=== PATIENT | male | born 1990 | race Caucasian/White ===

== ENCOUNTER 2020-01-26 22:34 | Observation (INO) | payer BC ==
[2020-01-26] MEDS ORDERED: Sodium Chloride 0.9% 1,000 ML IV STA (22:45)
[2020-01-26] MEDS ORDERED: Ondansetron 4 MG/2 ML SDV IVPUSH ONE (22:45)
[2020-01-26] MEDS ORDERED: Sodium Chloride 0.9% 10 ML Syringe FLUSH PRN (22:45)
[2020-01-26] MEDS ORDERED: HYDROmorphone 1 MG/ML Syringe IVPUSH ONE (22:46)
--- NOTE | 2020-01-26 22:57 | EDM.PDOC ---
ED HPI GENERAL MEDICAL PROBLEM - General Chief Complaint: Abdominal Pain Stated Complaint: RT SIDE FLANK PAIN Time Seen by Provider: 01/26/20 22:45 Source of Information: Reports: Patient History Limitations: Reports: No Limitations - History of Present Illness INITIAL COMMENTS - FREE TEXT/NARRATIVE: The patient presents with RLQ abdominal pain, nausea, vomiting and back pain. This all started tonight at 7:30pm when he was cooking dinner. He has no history of kidney stones. He has no fever, chills, cough, congestion, runny nose, chest pain or shortness of breath. He has no dysuria or hematuria. He has no diarrhea. He still has his gallbladder and appendix. Onset: Sudden Duration: Hour(s): Location: Reports: Abdomen Quality: Reports: Sharp Severity: Severe Improves with: Reports: None Worsens with: Reports: None Associated Symptoms: Reports: Nausea/Vomiting. Denies: Chest Pain, Cough, Fever /Chills, Headaches, Shortness of Breath Right Upper Abdomen Pain Score (Numeric/FACES): 7 - Related Data Allergies Allergy/AdvReac Type Severity Reaction Status Date / Time No Known Allergies Allergy Verified 01/26/20 22:45 Social & Family History - Tobacco Use Years of Tobacco use: 4 - Caffeine Use Caffeine Use: Reports: None - Recreational Drug Use Recreational Drug Use: No ED ROS GENERAL - Review of Systems Review Of Systems: See Below Constitutional: Reports: No Symptoms HEENT: Reports: No Symptoms Respiratory: Reports: No Symptoms Cardiovascular: Reports: No Symptoms Endocrine: Reports: No Symptoms GI/Abdominal: Reports: Abdominal Pain, Nausea, Vomiting. Denies: Diarrhea : Reports: No Symptoms Musculoskeletal: Reports: Back Pain Skin: Reports: No Symptoms ED EXAM, GI/ABD - Physical Exam Exam: See Below Exam Limited By: No Limitations General Appearance: Alert, No Apparent Distress Ears: Normal External Exam Nose: Normal Inspection Head: Atraumatic, Normocephalic Neck: Normal Inspection Respiratory/Chest: No Respiratory Distress, Lungs Clear, Normal Breath Sounds Cardiovascular: Regular Rate, Rhythm, No Edema, No Murmur GI/Abdominal Exam: Soft, No Organomegaly, No Mass, Tender (Moderate tenderness to the RLQ) Course - Vital Signs Last Recorded V/S: Last Vital Signs Temp 98.1 F 01/26/20 22:42 Pulse 71 01/26/20 22:42 Resp 20 01/26/20 22:42 BP 160/91 H 01/26/20 22:42 Pulse Ox 99 01/26/20 22:42 - Orders/Labs/Meds Orders: Active Orders 24 hr Category Date Time Status Peripheral IV Care [RC] . DIRECTED Care 01/26/20 22:45 Active Abdomen Pelvis w Cont [CT] Stat Exams 01/26/20 22:45 Taken UA W/MICROSCOPIC [URIN] Stat Lab 01/26/20 22:45 Ordered Sodium Chloride 0.9% [Saline Flush] Med 01/26/20 22:45 Active 10 ml FLUSH ASDIRECTED PRN ED Antiemetic Medication Reflex [OM.PC] Stat Oth 01/26/20 22:45 Ordered Peripheral IV Insertion Adult [OM.PC] Stat Oth 01/26/20 22:45 Ordered Medication Orders Sodium Chloride (Saline Flush) 10 ml FLUSH ASDIRECTED PRN PRN Reason: Keep Vein Open Last Admin: 01/26/20 22:57 Dose: 10 ml Labs: Laboratory Tests 01/26/20 01/26/20 Range/Units 22:52 22:52 WBC 16.94 H (4.23-9.07) K/mm3 RBC 5.14 (4.63-6.08) M/mm3 Hgb 15.1 (13.7-17.5) gm/dl Hct 43.9 (40.1-51.0) % MCV 85.4 (79.0-92.2) fl MCH 29.4 (25.7-32.2) pg MCHC 34.4 (32.2-35.5) g/dl RDW Std Deviation 39.6 (35.1-43.9) fL Plt Count 227 (163-337) K/mm3 MPV 9.0 L (9.4-12.3) fl Neut % (Auto) 82.9 H (34.0-67.9) % Lymph % (Auto) 10.4 L (21.8-53.1) % [place] % (Auto) 6.3 (5.3-12.2) % Eos % (Auto) 0.1 L (0.8-7.0) Baso % (Auto) 0.1 (0.1-1.2) % Neut # (Auto) 14.04 H (1.78-5.38) K/mm3 Lymph # (Auto) 1.76 (1.32-3.57) K/mm3 [place] # (Auto) 1.07 H (0.30-0.82) K/mm3 Eos # (Auto) 0.02 L (0.04-0.54) K/mm3 Baso # (Auto) 0.01 (0.01-0.08) K/mm3 Manual Slide Review Sodium 141 (136-145) mEq/L Potassium 3.5 (3.5-5.1) mEq/L Chloride 103 (98-107) mEq/L Carbon Dioxide 29 (21-32) mEq/L Anion Gap 12.5 (5-15) BUN 11 (7-18) mg/dL Creatinine 1.1 (0.7-1.3) mg/dL Est Cr Clr Drug Dosing 111.98 mL/min Estimated GFR (MDRD) > 60 (>60) mL/min BUN/Creatinine Ratio 10.0 L (14-18) Glucose 119 H (74-106) mg/dL Calcium 9.0 (8.5-10.1) mg/dL Total Bilirubin 0.8 (0.2-1.0) mg/dL AST 22 (15-37) U/L ALT 38 (16-63) U/L Alkaline Phosphatase 77 (46-116) U/L Total Protein 7.4 (6.4-8.2) g/dl Albumin 4.2 (3.4-5.0) g/dl Globulin 3.2 gm/dL Albumin/Globulin Ratio 1.3 (1-2) Lipase 72 L (73-393) U/L Meds: Medications Generic Name Dose Route Start Last Admin Trade Name Freq PRN Reason Stop Dose Admin Sodium Chloride 10 ml 01/26/20 22:45 01/26/20 22:57 Saline Flush FLUSH 10 ml ASDIRECTED PRN Administration Keep Vein Open Discontinued Medications Generic Name Dose Route Start Last Admin Trade Name Freq PRN Reason Stop Dose Admin Hydromorphone HCl 1 mg 01/26/20 22:46 01/26/20 22:58 Dilaudid IVPUSH 01/26/20 22:47 1 mg ONETIME ONE Administration Hydromorphone HCl 0.5 mg 01/27/20 00:32 01/27/20 00:37 Dilaudid IVPUSH 01/27/20 00:33 0.5 mg ONETIME ONE Administration Sodium Chloride 1,000 mls @ 1,000 mls/hr 01/26/20 22:45 01/26/20 22:57 Normal Saline IV 01/26/20 23:44 1,000 mls/hr .BOLUS STA Administration Ondansetron HCl 4 mg 01/26/20 22:45 01/26/20 22:57 Zofran IVPUSH 01/26/20 22:46 4 mg ONETIME ONE Administration - Re-Assessments/Exams Free Text/Narrative Re-Assessment/Exam: 01/26/20 22:56 I ordered an IV NS 1L bolus, zofran 4mg IV, dilaudid 1mg IV, labs, UA and a CT of his abdomen and pelvis with IV and oral contrast. His history suggest more kidney stones but his exam makes me concerned about appendix. 01/27/20 01:04 His WBC is elevated 16.94. His CMP looks good. His lipase was low. His CT shows findings consistent with acute appendicitis without perforation or abscess. 01/27/20 01:[address] Patrick and he wanted a dose of invanz and he will see the patient in a few hours to take out his appendix. Departure - Departure Time of Disposition: 13:15 Disposition: Refer to Observation Condition: Fair Clinical Impression: Appendicitis Qualifiers: Appendicitis type: acute appendicitis Acute appendicitis type: with localized peritonitis Appendicitis gangrene presence: without gangrene Appendicitis perforation presence: without perforation Appendicitis abscess presence: without abscess Qualified Code(s): K35.30 - Acute appendicitis with localized peritonitis, without perforation or gangrene - Discharge Information Referrals: PCP,None [Primary Care Provider] - Forms: ED Department Discharge Sepsis Event Note - Evaluation Sepsis Screening Result: No Definite Risk - Focused Exam Vital Signs: Vital Signs Temp Pulse Resp BP Pulse Ox 01/26/20 22:42 98.1 F 71 20 160/91 H 99 Date Exam was Performed: 01/27/20 Time Exam was Performed: 01:04 - My Orders Last 24 Hours: My Active Orders 01/26/20 22:45 Peripheral IV Care [RC] . DIRECTED Abdomen Pelvis w Cont [CT] Stat UA W/MICROSCOPIC [URIN] Stat Sodium Chloride 0.9% [Saline Flush] 10 ml FLUSH ASDIRECTED PRN ED Antiemetic Medication Reflex [OM.PC] Stat Peripheral IV Insertion Adult [OM.PC] Stat - Assessment/Plan Last 24 Hours: My Active Orders 01/26/20 22:45 Peripheral IV Care [RC] . DIRECTED Abdomen Pelvis w Cont [CT] Stat UA W/MICROSCOPIC [URIN] Stat Sodium Chloride 0.9% [Saline Flush] 10 ml FLUSH ASDIRECTED PRN ED Antiemetic Medication Reflex [OM.PC] Stat Peripheral IV Insertion Adult [OM.PC] Stat
[2020-01-27] MEDS ORDERED: HYDROmorphone 0.5 MG/0.5 ML Syringe IVPUSH ONE (00:32)
[2020-01-27] MEDS ORDERED: Ertapenem 1 GM Vial ONE (01:14)
[2020-01-27] MEDS ORDERED: Sodium Chloride 0.9% 100 ML ONE (01:15)
[2020-01-27] MEDS ORDERED: Ertapenem 1 GM in Sodium Chloride 0.9% 100 ML IV ONE (01:18)
[2020-01-27] MEDS ORDERED: Ondansetron 4 MG/2 ML SDV IVPUSH PRN (01:44)
[2020-01-27] MEDS ORDERED: Lactated Ringers 1,000 ML IV SCH (02:00)
[2020-01-27] MEDS: HYDROmorphone 0.5 MG/0.5 ML Syringe IVPUSH PRN ×4 (05:55→14:13)
--- NOTE | 2020-01-27 07:04 | PCM.PREANE ---
Preanesthetic Assessment - Anesthesia/Transfusion/Family Hx Anesthesia History: Prior Anesthesia Without Reaction Family History of Anesthesia Reaction: No Transfusion History: Prior Transfusion Reaction - Review of Systems General: No Symptoms Pulmonary: No Symptoms Cardiovascular: No Symptoms Gastrointestinal: No Symptoms Neurological: No Symptoms Other: Reports: None - Physical Assessment NPO Status Date: 01/26/20 NPO Status Time: 21:00 Vital Signs: Last Vital Signs Temp 99.1 F 01/27/20 05:45 Pulse 56 L 01/27/20 05:45 Resp 14 01/27/20 05:45 BP 126/63 01/27/20 05:45 Pulse Ox 96 01/27/20 05:45 Height: 1.85 m Weight: 110.314 kg ASA Class: 1 Mental Status: Alert & Oriented x3 Airway Class: Mallampati = 2 Dentition: Reports: Normal Dentition, [place](s) Thyro-Mental Finger Breadths: 3 Mouth Opening Finger Breadths: 3 ROM/Head Extension: Full Lungs: Clear to Auscultation, Normal Respiratory Effort Cardiovascular: Regular Rate, Regular Rhythm - Lab Values: Laboratory Last Values WBC 16.94 K/mm3 (4.23-9.07) H 01/26/20 22:52 RBC 5.14 M/mm3 (4.63-6.08) 01/26/20 22:52 Hgb 15.1 gm/dl (13.7-17.5) 01/26/20 22:52 Hct 43.9 % (40.1-51.0) 01/26/20 22:52 MCV 85.4 fl (79.0-92.2) 01/26/20 22:52 MCH 29.4 pg (25.7-32.2) 01/26/20 22:52 MCHC 34.4 g/dl (32.2-35.5) 01/26/20 22:52 RDW Std Deviation 39.6 fL (35.1-43.9) 01/26/20 22:52 Plt Count 227 K/mm3 (163-337) 01/26/20 22:52 MPV 9.0 fl (9.4-12.3) L 01/26/20 22:52 Neut % (Auto) 82.9 % (34.0-67.9) H 01/26/20 22:52 Lymph % (Auto) 10.4 % (21.8-53.1) L 01/26/20 22:52 [place] % (Auto) 6.3 % (5.3-12.2) 01/26/20 22:52 Eos % (Auto) 0.1 (0.8-7.0) L 01/26/20 22:52 Baso % (Auto) 0.1 % (0.1-1.2) 01/26/20 22:52 Neut # (Auto) 14.04 K/mm3 (1.78-5.38) H 01/26/20 22:52 Lymph # (Auto) 1.76 K/mm3 (1.32-3.57) 01/26/20 22:52 [place] # (Auto) 1.07 K/mm3 (0.30-0.82) H 01/26/20 22:52 Eos # (Auto) 0.02 K/mm3 (0.04-0.54) L 01/26/20 22:52 Baso # (Auto) 0.01 K/mm3 (0.01-0.08) 01/26/20 22:52 Manual Slide Review 01/26/20 22:52 Sodium 141 mEq/L (136-145) 01/26/20 22:52 Potassium 3.5 mEq/L (3.5-5.1) 01/26/20 22:52 Chloride 103 mEq/L (98-107) 01/26/20 22:52 Carbon Dioxide 29 mEq/L (21-32) 01/26/20 22:52 Anion Gap 12.5 (5-15) 01/26/20 22:52 BUN 11 mg/dL (7-18) 01/26/20 22:52 Creatinine 1.1 mg/dL (0.7-1.3) 01/26/20 22:52 Est Cr Clr Drug Dosing 111.98 mL/min 01/26/20 22:52 Estimated GFR (MDRD) > 60 mL/min (>60) 01/26/20 22:52 BUN/Creatinine Ratio 10.0 (14-18) L 01/26/20 22:52 Glucose 119 mg/dL (74-106) H 01/26/20 22:52 Calcium 9.0 mg/dL (8.5-10.1) 01/26/20 22:52 Total Bilirubin 0.8 mg/dL (0.2-1.0) 01/26/20 22:52 AST 22 U/L (15-37) 01/26/20 22:52 ALT 38 U/L (16-63) 01/26/20 22:52 Alkaline Phosphatase 77 U/L (46-116) 01/26/20 22:52 Total Protein 7.4 g/dl (6.4-8.2) 01/26/20 22:52 Albumin 4.2 g/dl (3.4-5.0) 01/26/20 22:52 Globulin 3.2 gm/dL 01/26/20 22:52 Albumin/Globulin Ratio 1.3 (1-2) 01/26/20 22:52 Lipase 72 U/L (73-393) L 01/26/20 22:52 Urine Color Yellow (Yellow) 01/27/20 01:13 Urine Appearance Clear (Clear) 01/27/20 01:13 Urine pH 7.0 (5.0-8.0) 01/27/20 01:13 Ur Specific [place] 1.015 (1.005-1.030) 01/27/20 01:13 Urine Protein Negative (Negative) 01/27/20 01:13 Urine Glucose (UA) Negative (Negative) 01/27/20 01:13 Urine Ketones 1+ (Negative) H 01/27/20 01:13 Urine Occult Blood Negative (Negative) 01/27/20 01:13 Urine Nitrite Negative (Negative) 01/27/20 01:13 Urine Bilirubin Negative (Negative) 01/27/20 01:13 Urine Urobilinogen 0.2 (0.2-1.0) 01/27/20 01:13 Ur Leukocyte Esterase Negative (Negative) 01/27/20 01:13 Urine RBC 0-5 /hpf (0-5) 01/27/20 01:13 Urine WBC Not seen /hpf (0-5) 01/27/20 01:13 Ur Squamous Epith Cells 0-5 /hpf (0-5) 01/27/20 01:13 Urine Bacteria Not seen /hpf (FEW) 01/27/20 01:13 Urine Mucus Not seen /hpf (FEW) 01/27/20 01:13 - Allergies Allergies/Adverse Reactions: Allergies Allergy/AdvReac Type Severity Reaction Status Date / Time No Known Allergies Allergy Verified 01/26/20 22:45 - Acknowledgements Anesthesia Type Planned: General Anesthesia Pt an Appropriate Candidate for the Planned Anesthesia: Yes Alternatives and Risks of Anesthesia Discussed w Pt/Guardian: Yes Pt/Guardian Understands and Agrees with Anesthesia Plan: Yes PreAnesthesia Questionnaire - Past Surgical History Male Surgical History: Reports: Vasectomy - SUBSTANCE USE Tobacco Use Within Last Twelve Months: Vaping Date of Last Drink: 01/25/20 Recreational Drug Use History: No - HOME MEDS Home Medications: Home Meds . [No Known Home Meds] 01/27/20 [History] - CURRENT (IN HOUSE) MEDS Current Meds: Current Medications Hydromorphone HCl (Dilaudid) 0.5 mg IVPUSH Q2H PRN PRN Reason: Pain Last Admin: 01/27/20 05:55 Dose: 0.5 mg Lactated Ringer's (Ringers, Lactated) 1,000 mls @ 100 mls/hr IV ASDIRECTED DAREN Last Admin: 01/27/20 03:00 Dose: 100 mls/hr Ertapenem 1 gm/ Sodium (Chloride) 50 mls @ 100 mls/hr IV Q24H DAREN Ondansetron HCl (Zofran) 4 mg IVPUSH Q6H PRN PRN Reason: n/v Sodium Chloride (Saline Flush) 10 ml FLUSH ASDIRECTED PRN PRN Reason: Keep Vein Open Last Admin: 01/26/20 22:57 Dose: 10 ml Discontinued Medications Ertapenem (Invanz) Confirm Administered Dose 1 gm .ROUTE .STK-MED ONE Stop: 01/27/20 01:15 Last Admin: 01/27/20 01:20 Dose: Not Given Hydromorphone HCl (Dilaudid) 1 mg IVPUSH ONETIME ONE Stop: 01/26/20 22:47 Last Admin: 01/26/20 22:58 Dose: 1 mg Hydromorphone HCl (Dilaudid) 0.5 mg IVPUSH ONETIME ONE Stop: 01/27/20 00:33 Last Admin: 01/27/20 00:37 Dose: 0.5 mg Sodium Chloride (Normal Saline) 1,000 mls @ 1,000 mls/hr IV .BOLUS STA Stop: 01/26/20 23:44 Last Admin: 01/26/20 22:57 Dose: 1,000 mls/hr Ertapenem 1 gm/ Sodium (Chloride) 100 mls @ 100 mls/hr IV ONETIME ONE Stop: 01/27/20 02:17 Last Admin: 01/27/20 01:22 Dose: 100 mls/hr Sodium Chloride (Normal Saline) Confirm Administered Dose 100 mls @ as directed .ROUTE .STK-MED ONE Stop: 01/27/20 01:16 Last Admin: 01/27/20 01:20 Dose: Not Given Ondansetron HCl (Zofran) 4 mg IVPUSH ONETIME ONE Stop: 01/26/20 22:46 Last Admin: 01/26/20 22:57 Dose: 4 mg
--- NOTE | 2020-01-27 07:41 | PCM.HP.2 ---
H&P History of Present Illness - General Date of Service: 01/27/20 Admit Problem/Dx: Admission Diagnosis/Problem Admission Diagnosis/Problem Appendicitis Source of Information: Patient History Limitations: Reports: No Limitations - History of Present Illness Initial Comments - Free Text/Narative: The patient started having RLQ abdominal pain last night at 7pm. Pain was sharp , located in the RLQ, radiating to RUQ, worse with movement, better with immobilization, no fevers, chills, nausea or vomiting. The pain progressed and the patient was taken to the ED where WBC was [address] a/p revealed acute appendicitis. I was called and recommended Invanz and appendectomy in the AM. Patient denies any fevers, chills, SOB, chest pain. He reports that he had appendectomy in 2013 that was treated with antibiotics and resolved but has been having periodic low grade RLQ since that time. Onset of Symptoms: Reports: Sudden Duration of Symptoms: Reports: Day(s): Location: Reports: Abdomen Quality: Reports: Stabbing Severity: Moderate Improves with: Reports: Immobilization Worsens with: Reports: Breathing, Movement Right Upper Abdomen Pain Score (Numeric/FACES): 6 - Related Data Allergies/Adverse Reactions: Allergies Allergy/AdvReac Type Severity Reaction Status Date / Time No Known Allergies Allergy Verified 01/26/20 22:45 Home Medications: Home Meds . [No Known Home Meds] 01/27/20 [History] Past Medical History - Past Surgical History Male Surgical History: Reports: Vasectomy Social & Family History - Tobacco Use Years of Tobacco use: 4 - Caffeine Use Caffeine Use: Reports: Energy Drinks Caffeine Use Comment: patient reports he drinks about 2-4 red bulls per day, but has only about 2 this week - Alcohol Use Date of Last Drink: 01/25/20 - Recreational Drug Use Recreational Drug Use: No H&P Review of Systems - Review of Systems: Review Of Systems: See Below General: Reports: No Symptoms HEENT: Reports: No Symptoms Pulmonary: Reports: No Symptoms Cardiovascular: Reports: No Symptoms Gastrointestinal: Reports: Abdominal Pain Genitourinary: Reports: No Symptoms Musculoskeletal: Reports: No Symptoms Skin: Reports: No Symptoms Psychiatric: Reports: No Symptoms Neurological: Reports: No Symptoms Exam - Exam Exam: See Below - Vital Signs Vital Signs: Last Vital Signs Temp 99.1 F 01/27/20 05:45 Pulse 56 L 01/27/20 05:45 Resp 14 01/27/20 05:45 BP 126/63 01/27/20 05:45 Pulse Ox 96 01/27/20 05:45 Weight: 110.314 kg - Exam General: Alert, Oriented, Cooperative Lungs: Clear to Auscultation, Normal Respiratory Effort Cardiovascular: Regular Rate, Regular Rhythm, Normal S1, Normal S2 GI/Abdominal Exam: No Organomegaly, No Distention, No Mass, Tender (RLQ) Extremities: Normal Inspection - Patient Data Lab Results Last 24 hrs: Laboratory Results - last 24 hr 01/26/20 01/26/20 01/27/20 Range/Units 22:52 22:52 01:13 WBC 16.94 H (4.23-9.07) K/mm3 RBC 5.14 (4.63-6.08) M/mm3 Hgb 15.1 (13.7-17.5) gm/dl Hct 43.9 (40.1-51.0) % MCV 85.4 (79.0-92.2) fl MCH 29.4 (25.7-32.2) pg MCHC 34.4 (32.2-35.5) g/dl RDW Std Deviation 39.6 (35.1-43.9) fL Plt Count 227 (163-337) K/mm3 MPV 9.0 L (9.4-12.3) fl Neut % (Auto) 82.9 H (34.0-67.9) % Lymph % (Auto) 10.4 L (21.8-53.1) % [place] % (Auto) 6.3 (5.3-12.2) % Eos % (Auto) 0.1 L (0.8-7.0) Baso % (Auto) 0.1 (0.1-1.2) % Neut # (Auto) 14.04 H (1.78-5.38) K/mm3 Lymph # (Auto) 1.76 (1.32-3.57) K/mm3 [place] # (Auto) 1.07 H (0.30-0.82) K/mm3 Eos # (Auto) 0.02 L (0.04-0.54) K/mm3 Baso # (Auto) 0.01 (0.01-0.08) K/mm3 Manual Slide Review Sodium 141 (136-145) mEq/L Potassium 3.5 (3.5-5.1) mEq/L Chloride 103 (98-107) mEq/L Carbon Dioxide 29 (21-32) mEq/L Anion Gap 12.5 (5-15) BUN 11 (7-18) mg/dL Creatinine 1.1 (0.7-1.3) mg/dL Est Cr Clr Drug Dosing 111.98 mL/min Estimated GFR (MDRD) > 60 (>60) mL/min BUN/Creatinine Ratio 10.0 L (14-18) Glucose 119 H (74-106) mg/dL Calcium 9.0 (8.5-10.1) mg/dL Total Bilirubin 0.8 (0.2-1.0) mg/dL AST 22 (15-37) U/L ALT 38 (16-63) U/L Alkaline Phosphatase 77 (46-116) U/L Total Protein 7.4 (6.4-8.2) g/dl Albumin 4.2 (3.4-5.0) g/dl Globulin 3.2 gm/dL Albumin/Globulin Ratio 1.3 (1-2) Lipase 72 L (73-393) U/L Urine Color Yellow (Yellow) Urine Appearance Clear (Clear) Urine pH 7.0 (5.0-8.0) Ur Specific [place] 1.015 (1.005-1.030) Urine Protein Negative (Negative) Urine Glucose (UA) Negative (Negative) Urine Ketones 1+ H (Negative) Urine Occult Blood Negative (Negative) Urine Nitrite Negative (Negative) Urine Bilirubin Negative (Negative) Urine Urobilinogen 0.2 (0.2-1.0) Ur Leukocyte Esterase Negative (Negative) Urine RBC 0-5 (0-5) /hpf Urine WBC Not seen (0-5) /hpf Ur Squamous Epith Cells 0-5 (0-5) /hpf Urine Bacteria Not seen (FEW) /hpf Urine Mucus Not seen (FEW) /hpf Result Diagrams: 01/26/20 22:52 01/26/20 22:52 Sepsis Event Note - Evaluation Sepsis Screening Result: No Definite Risk - Focused Exam Vital Signs: Vital Signs Temp Temp Pulse Pulse Resp BP BP 01/27/20 05:45 99.1 F 56 L 14 126/63 01/27/20 01:48 64 20 139/98 H 01/26/20 22:42 98.1 F 71 20 160/91 H Pulse Ox 01/27/20 05:45 96 01/27/20 01:48 95 01/26/20 22:42 99 Date Exam was Performed: 01/27/20 Time Exam was Performed: 07:36 Problem List Initiated/Reviewed/Updated: No Orders Last 24hrs: Active Orders 24 hr Category Date Time Status Admission Status [Patient Status] [ADT] Routine ADT 01/27/20 01:20 Active Bedrest Bathroom Privileges [RC] BID Care 01/27/20 01:44 Active NPO [Nothing Per Oral Diet] [DIET] Diet 01/27/20 Breakfast Active Abdomen Pelvis w Cont [CT] Stat Exams 01/26/20 22:45 Taken Ertapenem [INVanz] 1 gm Med 01/28/20 01:30 Active Sodium Chloride 0.9% [Normal Saline] 50 ml IV Q24H HYDROmorphone [Dilaudid] Med 01/27/20 01:45 Active 0.5 mg IVPUSH Q2H PRN Lactated Ringers [Ringers, Lactated] 1,000 ml Med 01/27/20 02:00 Active IV ASDIRECTED Ondansetron [Zofran] Med 01/27/20 01:44 Active 4 mg IVPUSH Q6H PRN Sodium Chloride 0.9% [Saline Flush] Med 01/26/20 22:45 Active 10 ml FLUSH ASDIRECTED PRN ED Antiemetic Medication Reflex [OM.PC] Stat Oth 01/26/20 22:45 Ordered Peripheral IV Insertion Adult [OM.PC] Stat Oth 01/26/20 22:45 Ordered Schedule Procedure [COMM] Routine Oth 01/27/20 05:20 Ordered Code Status [Resuscitation Status] Routine Resus Stat 01/27/20 01:43 Ordered Medication Orders Hydromorphone HCl (Dilaudid) 0.5 mg IVPUSH Q2H PRN PRN Reason: Pain Last Admin: 01/27/20 05:55 Dose: 0.5 mg Lactated Ringer's (Ringers, Lactated) 1,000 mls @ 100 mls/hr IV ASDIRECTED DAREN Last Admin: 01/27/20 03:00 Dose: 100 mls/hr Ertapenem 1 gm/ Sodium (Chloride) 50 mls @ 100 mls/hr IV Q24H DAREN Ondansetron HCl (Zofran) 4 mg IVPUSH Q6H PRN PRN Reason: n/v Sodium Chloride (Saline Flush) 10 ml FLUSH ASDIRECTED PRN PRN Reason: Keep Vein Open Last Admin: 01/26/20 22:57 Dose: 10 ml Assessment/Plan Comment:: Patient has acute appendicitis. We will proceed with laparoscopic appendectomy, possible open. We discussed risks, benefits and alternatives. Questions were answered. Informed consent was obtained. - Mortality Measure Prognosis:: Good
--- NOTE | 2020-01-27 09:20 | CT ---
CT abdomen and pelvis Technique: Multiple axial sections were obtained from above the dome of the diaphragm inferiorly through the pubic symphysis. Intravenous and oral contrast was utilized. Delayed images were also obtained through the pelvis. Comparison: No prior abdominal imaging is available. Findings: Dilated appendix is seen with surrounding inflammatory change compatible with early appendicitis. Other findings: Mild dependent atelectasis is seen posteriorly within both lung bases. Liver shows no focal abnormality. Spleen appears within normal limits. Adrenal glands show no nodule. Pancreas is within normal limits. Kidneys show symmetric contrast enhancement without hydronephrosis or mass. Gallbladder contains no calcified gallstones. Aorta shows no aneurysm. No retroperitoneal adenopathy or mesenteric abnormalities are seen. No pelvic mass or adenopathy is seen. No other inflammatory change is seen. No free fluid is identified. Delayed images shows contrast within the distal ureters and within the bladder. Bone window settings were reviewed which shows no acute osseous finding. Impression: 1. Findings compatible with early appendicitis. 2. No other acute findings are seen on CT study of the abdomen and pelvis. Diagnostic code #5 This report was dictated in MDT I agree with preliminary report from [facility], finalized on 01/27/20, 2:00 AM Central Daylight Time
[2020-01-27] MEDS ORDERED: Lidocaine 1% 50 ML MDV ONE (09:47)
[2020-01-27] MEDS ORDERED: Propofol 200 MG/20 ML SDV ONE (10:35)
[2020-01-27] MEDS ORDERED: Midazolam 1 MG/ML 2 ML SDV ONE (10:35)
[2020-01-27] MEDS ORDERED: Rocuronium 50 MG/5 ML Vial ONE (10:35)
[2020-01-27] MEDS ORDERED: fentaNYL 250 MCG/5 ML SDV ONE (10:36)
[2020-01-27] MEDS ORDERED: Succinylcholine/Sod PF 100 MG/5 ML SYRINGE IV ONE (10:36)
[2020-01-27] MEDS ORDERED: Lidocaine 1% 4 ML ONE (10:37)
[2020-01-27] MEDS ORDERED: fentaNYL 100 MCG/2 ML SDV IVPUSH PRN (12:17)
[2020-01-27] MEDS ORDERED: HYDROmorphone 0.5 MG/0.5 ML Syringe IVPUSH PRN (12:17)
[2020-01-27] MEDS ORDERED: Ondansetron 4 MG/2 ML SDV ONE (12:25)
[2020-01-27] MEDS ORDERED: HYDROmorphone 0.5 MG/0.5 ML Syringe ONE (12:31)
[2020-01-27] MEDS ORDERED: Lactated Ringers 1,000 ML ONE ×2 (12:35→12:52)
--- NOTE | 2020-01-27 13:46 | PCM.POSTAN ---
POST ANESTHESIA ASSESSMENT - MENTAL STATUS Mental Status: Somnolent - VITAL SIGNS Vital Signs: Last Vital Signs Temp 97.2 F 01/27/20 13:29 Pulse 81 01/27/20 13:29 Resp 10 L 01/27/20 13:40 BP 134/76 01/27/20 13:29 Pulse Ox 100 01/27/20 13:40 - RESPIRATORY Respiratory Status: Respiratory Rate WNL, Airway Patent (Nasal trumpet #34), O2 Saturation Stable, Supplemental Oxygen - CARDIOVASCULAR CV Status: Pulse Rate WNL, Blood Pressure Stable - GASTROINTESTINAL GI Status: No Symptoms - PAIN Pain Score: 0 - POST OP HYDRATION Hydration Status: Adequate & Stable
--- NOTE | 2020-01-27 14:03 | OR ---
DATE OF OPERATION: 01/27/2020 SURGEON: Anselmo Patrick MD PREOPERATIVE DIAGNOSIS: Acute appendicitis. POSTOPERATIVE DIAGNOSIS: Acute appendicitis. OPERATION PERFORMED: Laparoscopic appendectomy. ESTIMATED BLOOD LOSS: 10 mL. ANESTHESIA: General endotracheal. COMPLICATIONS: None. NEED FOR CHANNEL MANAGER: The skilled assistance was needed in this case. The administrative support assistant helped with patient positioning, holding the camera during the operation, and wound closure at the end of the case. INDICATION AND CONSENT: The patient is a 29-year-old male who presented with a right lower quadrant pain for 16 hours. Pain started overnight and progressed to become much worse. The patient presented to the emergency department where a white count was [address] scan confirmed acute appendicitis. I was called to discuss the case. I recommended the patient get Invanz and undergo appendectomy. I saw the patient, discussed about the findings. The patient did report that he had appendicitis back in 2013 that was treated nonoperatively, but has been having some low-grade right lower abdominal pain since that time. We discussed risks, benefits, and alternatives for the procedure and informed consent was obtained. DESCRIPTION OF PROCEDURE: The patient was taken to the operating room, placed in supine position. SCDs were placed. The patient was padded and general anesthesia was induced. Then, antibiotics consisting of cefoxitin were provided. Abdomen was clipped of any hair and prepped and draped in the usual sterile fashion. Formal time-out was performed prior to the start of the procedure. We began the procedure by injecting local anesthetic in the infraumbilical position. Then, an incision was made at this position. Subcutaneous tissues were dissected bluntly with a Anmol clamp and umbilical stalk was grabbed and the abdominal wall elevated. Veress needle was introduced into the abdomen and the abdomen was insufflated to 15 mmHg. Then, a 12 mm trocar was inserted under direct visualization of laparoscope. Abdominal inspection was performed and there were no injuries to the bowel that were noted. Two additional 5 mm trocars were placed, one in the left lower quadrant and another one in the suprapubic aspect. Then, we began the operation by focusing on the right lower quadrant. Inflamed appendix was found at this site. There was no adjacent abscess or signs of perforation. The appendix was very inflamed from the mid appendix to the distal appendix with the proximal part of the appendix not inflamed. Appendix was densely adhered to the terminal ileum fat pad likely due to prior episodes of inflammation. A window was made at the base of the appendix and this was taken with a blue 55 mm BRYNN staple. Then, because of dense adhesions between the appendix and the terminal ileum fat pad, I used the LigaSure Impact to take down these adhesions as well as any blood vessels. The appendix was completely released. There was no active bleeding. The appendix was placed in the Endo Catch bag. The abdomen was inspected once again. There was a small amount of inflammatory fluid in the pelvis, but the dissection site appeared hemostatic. Staple line was also hemostatic. At this time, the appendix was removed through the infraumbilical incision and this incision was closed at the fascial level with 0 Vicryl stitches. Then, the abdomen was desufflated and then all 3 skin incisions were closed at skin level with 4-0 Monocryl stitches. About 50 mL of 1% lidocaine was injected in the entire case. The patient tolerated the procedure well. At the end of the procedure, all instruments, sharps, and sponges were accounted and found to be correct x2 and the patient was awoken from general anesthesia, extubated, and taken to the PACU in stable condition. Plan will be for the patient to go home later today if tolerating fluids and the patient is to avoid lifting more than 20 pounds for about 2 weeks and the patient will come and see my nurse practitioner in 2 weeks for postop check. SULLY /[id number]
[2020-01-27] MEDS ORDERED: Meperidine 50 MG/ML Vial IVPUSH PRN (14:19)
--- NOTE | 2020-01-27 14:42 | PCM48HPAN ---
Post Anesthesia Note - EVALUATION WITHIN 48HRS OF ANESTHETIC Vital Signs in Normal Range: Yes Patient Participated in Evaluation: Yes Respiratory Function Stable: Yes Airway Patent: Yes Cardiovascular Function Stable: Yes Hydration Status Stable: Yes Pain Control Satisfactory: Yes Nausea and Vomiting Control Satisfactory: Yes Mental Status Recovered: Yes Vital Signs: Last Vital Signs Temp 97.5 F 01/27/20 14:30 Pulse 92 01/27/20 14:30 Resp 15 01/27/20 14:30 BP 149/78 H 01/27/20 14:30 Pulse Ox 94 L 01/27/20 14:30 - COMMENTS/OBSERVATIONS Free Text/Narrative:: Pain is under control, patient is stable , being transferred to his room for extended floor recovery prior to home discharge tonight.
[2020-01-27] MEDS ORDERED: Acetaminophen/HYDROcodone 325-5 MG Tab PO PRN (14:54)
[2020-01-28] MEDS ORDERED: Ertapenem 1 GM in Sodium Chloride 0.9% 50 ML IV SCH (01:30)
== END 2020-01-27 17:15 | disposition home or self-care (01) ==
LOC: JD.ED 22:34 → JD.MS 01-27 01:20
PROVIDERS: ADMIT Surgery; ATTEND Surgery
DX: K35.33 Acute appendicitis with perforation, localized peritonitis, and gangrene, with abscess (principal); F17.200 Nicotine dependence, unspecified, uncomplicated
CPT/HCPCS: 36415; 44970; 74177; 80053; 81001; 83690; 85025; 96361; 96366; 96374; 96375; 96376; 99285; A9270; G0378; J0330; J0694; J1170; J2001; J2175; J2250; J2405; J2704; J3010; J7030; J7050; J7120; J1335